=== PATIENT | male | born 1945 | race Native Hawaiian/Other Pacific Islander ===

== ENCOUNTER 2016-12-28 06:04 | Outpatient (CLI) | payer BC, OTHER ==
[~2016-12-28 06:04] MED LIST: AMOX875T8 PO; BUTRANS10 MCG/HR TD; CLOPIDOGREL75 MG PO; FLUTMIS6 INH; HYDR-2748 PO; HYDR10TA47 PO; LISI5TAB10 PO; NEXIUM40 M1 PO; POLY3350 PO; PROAIR HFA IN; SIMV20TA2 PO; SPIRIVA IN; TRIA37.541 PO
[2016-12-28 06:53] LABS: POTASSIUM 4.7 mmol/L (3.6-5.2)
== END 2016-12-28 19:50 | disposition home or self-care (01) ==
LOC: LABW 06:04
PROVIDERS: Internal Medicine
DX: N18.3 Chronic kidney disease, stage 3 (moderate) (principal); R79.89 Other specified abnormal findings of blood chemistry
CPT/HCPCS: 36415; 80069; 84439; 84443

== ENCOUNTER 2017-08-17 10:11 | Outpatient (CLI) | payer BC, OTHER | END 2017-08-17 10:12 | disposition home or self-care (01) | LOC: AMB 10:11 | DX: Z04.1 Encounter for examination and observation following transport accident (principal) ==

== ENCOUNTER 2017-09-08 03:09 | Outpatient (CLI) | payer BC, OTHER ==
[2017-09-08 03:29] LABS: PLATELET COUNT 211 K/uL (142-355)
[2017-09-08 03:54] LABS: POTASSIUM 4.7 mmol/L (3.6-5.2)
== END 2017-09-08 21:12 | disposition home or self-care (01) ==
LOC: LABW 03:09
PROVIDERS: Internal Medicine
DX: I10 Essential (primary) hypertension (principal); E03.8 Other specified hypothyroidism
CPT/HCPCS: 36415; 80053; 80061; 81000; 84439; 84443; 85027

== ENCOUNTER 2017-09-27 08:18 | Outpatient (CLI) | payer BC, OTHER | END 2017-09-27 19:00 | disposition home or self-care (01) | LOC: US 08:18 | DX: N18.3 Chronic kidney disease, stage 3 (moderate) (principal) ==

== ENCOUNTER 2018-06-21 09:26 | Outpatient (CLI) | payer BC, OTHER ==
[2018-06-21 10:20] LABS: PLATELET COUNT 239 K/uL (142-355)
[2018-06-21 10:38] LABS: POTASSIUM 4.6 mmol/L (3.6-5.2)
== END 2018-06-21 19:27 | disposition home or self-care (01) ==
LOC: LABW 09:26
PROVIDERS: Internal Medicine
DX: J44.1 Chronic obstructive pulmonary disease with (acute) exacerbation (principal); I10 Essential (primary) hypertension; N40.0 Benign prostatic hyperplasia without lower urinary tract symptoms
CPT/HCPCS: 36415; 80053; 80061; 81000; 84153; 84443; 85027

== ENCOUNTER 2018-10-06 09:31 | Outpatient (CLI) | payer BC, OTHER ==
[2018-10-06 10:33] LABS: PLATELET COUNT 241 K/uL (142-355)
== END 2018-10-06 20:12 | disposition home or self-care (01) ==
LOC: LABW 09:31
PROVIDERS: Internal Medicine
DX: Z00.00 Encounter for general adult medical examination without abnormal findings (principal); I10 Essential (primary) hypertension; Z79.899 Other long term (current) drug therapy; Z12.5 Encounter for screening for malignant neoplasm of prostate; R97.20 Elevated prostate specific antigen [PSA]
CPT/HCPCS: 36415; 80053; 80061; 81000; 84153; 84439; 84443; 85027

== ENCOUNTER 2018-10-14 09:26 | Outpatient (CLI) | payer BC, OTHER | END 2018-10-14 19:15 | disposition home or self-care (01) | LOC: CT 09:26 | DX: Z13.6 Encounter for screening for cardiovascular disorders (principal); Z13.9 Encounter for screening, unspecified ==

== ENCOUNTER 2018-11-04 09:32 | Outpatient (CLI) | payer BC, OTHER | END 2018-11-04 23:11 | disposition home or self-care (01) | LOC: RESP 09:32 | DX: R06.02 Shortness of breath (principal) ==

== ENCOUNTER 2019-08-04 09:33 | Outpatient (CLI) | payer BC, OTHER ==
[2019-08-04 09:53] LABS: PLATELET COUNT 244 K/uL (142-355)
[2019-08-04 10:10] LABS: POTASSIUM 4.7 mmol/L (3.6-5.2); SODIUM 139 mmol/L (136-145)
== END 2019-08-04 22:06 | disposition home or self-care (01) ==
LOC: LABW 09:33
PROVIDERS: Internal Medicine
DX: I10 Essential (primary) hypertension (principal); E03.8 Other specified hypothyroidism
CPT/HCPCS: 36415; 80053; 80061; 81000; 84439; 84443; 85027

== ENCOUNTER 2019-12-04 08:39 | Outpatient (CLI) | payer BC, OTHER | END 2019-12-04 22:30 | disposition home or self-care (01) | LOC: RESP 08:39 | DX: J44.9 Chronic obstructive pulmonary disease, unspecified (principal) ==

== ENCOUNTER 2020-04-22 04:27 | Outpatient (CLI) | payer BC, OTHER ==
[2020-04-22 04:50] LABS: PLATELET COUNT 212 K/uL (142-355)
[2020-04-22 05:37] LABS: POTASSIUM 4.6 mmol/L (3.6-5.2)
== END 2020-04-22 20:45 | disposition home or self-care (01) ==
LOC: LAB 04:27
PROVIDERS: Internal Medicine
DX: I10 Essential (primary) hypertension (principal); E03.8 Other specified hypothyroidism
CPT/HCPCS: 36415; 80053; 80061; 81000; 84439; 84443; 85027

== ENCOUNTER 2020-10-11 04:23 | Outpatient (CLI) | payer BC, OTHER ==
[2020-10-11 06:26] LABS: POTASSIUM 4.7 mmol/L (3.6-5.2)
== END 2020-10-11 22:13 | disposition home or self-care (01) ==
LOC: LABW 04:23
PROVIDERS: ATTEND Internal Medicine
DX: E03.8 Other specified hypothyroidism (principal); I10 Essential (primary) hypertension
CPT/HCPCS: 36415; 80053; 80061; 84439; 84443

== ENCOUNTER 2020-11-14 10:39 | Outpatient (CLI) | payer BC, OTHER | END 2020-11-14 19:24 | disposition home or self-care (01) | LOC: US 10:39 | PROVIDERS: ATTEND Internal Medicine | DX: E03.8 Other specified hypothyroidism (principal) ==

== ENCOUNTER 2021-08-05 04:21 | Outpatient (CLI) | payer BC, OTHER ==
[2021-08-05 04:58] LABS: PLATELET COUNT 207 K/uL (142-355)
[2021-08-05 05:43] LABS: POTASSIUM 4.6 mmol/L (3.6-5.2)
== END 2021-08-05 20:21 | disposition home or self-care (01) ==
LOC: LABW 04:21
PROVIDERS: ATTEND Internal Medicine
DX: I10 Essential (primary) hypertension (principal); F41.8 Other specified anxiety disorders
CPT/HCPCS: 36415; 80053; 80061; 81000; 84439; 84443; 85027

== ENCOUNTER 2021-09-19 07:59 | Outpatient (CLI) | payer BC, OTHER ==
[2021-09-19 08:53] LABS: PLATELET COUNT 197 K/uL (142-355)
== END 2021-09-19 18:59 | disposition home or self-care (01) ==
LOC: US 07:59
PROVIDERS: ATTEND Internal Medicine
DX: N18.32 Chronic kidney disease, stage 3b (principal)
CPT/HCPCS: 36415; 80053; 81000; 82306; 82330; 82570; 83735; 83970; 84100; 84155; 85027

== ENCOUNTER 2022-01-10 13:28 | Emergency (ER) | payer BC, OTHER ==
[~2022-01-10] VITALS: Ht 177.8 cm; Wt 68.9 kg
[2022-01-10 13:38] VITALS: TEMP 98.1
[2022-01-10 14:24] LABS: PLATELET COUNT 239 K/uL (142-355)
[2022-01-10 14:33] LABS: POTASSIUM 4.8 mmol/L (3.6-5.2)
[2022-01-10 14:47] LABS: PARTIAL THROMBOPLASTIN TIME 21.1 SECONDS (24.5-33.6)
[2022-01-10 17:29] VITALS: BP 130/64
== END 2022-01-10 17:35 | disposition home or self-care (01) ==
LOC: ED 13:28
PROVIDERS: Family Medicine
DX: R53.1 Weakness (principal); Z20.822 Contact with and (suspected) exposure to COVID-19
CPT/HCPCS: 36415; 80053; 82150; 82550; 84484; 85027; 85610; 85730; 87635; 93005; 94664; 96360; 96365; 99284; J0696; J2930; U0003

== ENCOUNTER 2022-01-22 09:49 | Outpatient (CLI) | payer BC, OTHER | END 2022-01-22 19:52 | disposition home or self-care (01) | LOC: RAD 09:49 | PROVIDERS: ATTEND Internal Medicine | DX: J18.9 Pneumonia, unspecified organism (principal) ==

== ENCOUNTER 2022-01-30 04:18 | Outpatient (CLI) | payer BC, OTHER ==
[2022-01-30 05:41] LABS: PLATELET COUNT 209 K/uL (142-355)
[2022-01-30 06:26] LABS: POTASSIUM 4.8 mmol/L (3.6-5.2)
== END 2022-01-30 19:49 | disposition home or self-care (01) ==
LOC: LABW 04:18
PROVIDERS: ATTEND Internal Medicine
DX: I12.9 Hypertensive chronic kidney disease with stage 1 through stage 4 chronic kidney disease, or unspecified chronic kidney disease (principal); N18.32 Chronic kidney disease, stage 3b
CPT/HCPCS: 36415; 80053; 80061; 81000; 82306; 82330; 82570; 83735; 83970; 84100; 84155; 84439; 84443; 85027

== ENCOUNTER 2022-10-05 11:18 | Outpatient (CLI) | payer BC, OTHER | END 2022-10-05 19:40 | disposition home or self-care (01) | LOC: RAD 11:18 | PROVIDERS: ATTEND Internal Medicine | DX: M51.36 Other intervertebral disc degeneration, lumbar region (principal) ==

== ENCOUNTER 2023-01-12 02:55 | Outpatient (CLI) | payer BC, OTHER ==
[2023-01-12 05:06] LABS: PLATELET COUNT 245 K/uL (142-355); POTASSIUM 4.6 mmol/L (3.6-5.2)
== END 2023-01-12 19:34 | disposition home or self-care (01) ==
LOC: LABW 02:55
PROVIDERS: ATTEND Internal Medicine
DX: N18.32 Chronic kidney disease, stage 3b (principal)
CPT/HCPCS: 36415; 80053; 81002; 82306; 82330; 82570; 83735; 83970; 84100; 84156; 85027

== ENCOUNTER 2023-02-01 08:07 | Outpatient (CLI) | payer BC, OTHER | END 2023-02-01 19:42 | disposition home or self-care (01) | LOC: MRI 08:07 | PROVIDERS: ATTEND Physician Assistant | DX: M54.16 Radiculopathy, lumbar region (principal) ==